=== PATIENT | female | born 1980 | race African-American/Black ===

== ENCOUNTER 2021-01-05 21:26 | Emergency (ER) | payer OTHER ==
[2021-01-05 21:39] VITALS: BP 132/82; PULSE 79; TEMP 98.9; BMI 36.8
[2021-01-05] MEDS ORDERED: MECLIZINE HCL 25 MG TABLET (FP) PO ONE (22:43)
[2021-01-05] MEDS ORDERED: ACETAMINOPHEN 500 MG TABLET (FP) PO ONE (22:43)
[2021-01-05] MEDS ORDERED: ACETAMINOPHEN 500 MG TABLET (FP) ONE (22:51)
[2021-01-05] MEDS ORDERED: MECLIZINE HCL 25 MG TABLET (FP) ONE (22:56)
== END 2021-01-06 00:32 ==
LOC: JERFT 21:26
DX: S06.0X0A Concussion without loss of consciousness, initial encounter (principal); R51.9 Headache, unspecified; V43.52XA Car driver injured in collision with other type car in traffic accident, initial encounter
CPT/HCPCS: 70450-TC; 93005; 93010; 99284-25